=== PATIENT | male | born 1995 | race Caucasian/White ===

== ENCOUNTER 2017-03-17 02:46 | Emergency (ER) | payer SELFPAY ==
[~2017-03-17] VITALS: Ht 185.4 cm; Wt 65.8 kg
[2017-03-17] MEDS ORDERED: IBUP-1007 PO (03:37)
--- NOTE | 2017-03-17 03:38 | PHYS DOC ---
Past Medical History Past Medical History: Other Additional Past Medical Histor: PTSD, heart murmur, "heart attack at 16y/o", Past Surgical History: Other Additional Past Surgical Histo: dental Alcohol Use: None Drug Use: None Adult General Chief Complaint Chief Complaint: CHEST WALL PAIN HPI HPI Patient is a 21 year old gentleman who presents here today complaining of sharp midsternal chest pain that started earlier today. Patient reported some tingling and numbness to his right hand as well. Patient denies any weakness. Patient has any fevers shakes chills nausea vomiting diarrhea chest pain shortness of breath cough cold or runny nose. Patient denies any history of hypertension diabetes liver longer kidney problems. Patient reports he was told pleurisy back in 2010. Constitutional: Denies fever or chills [] Eyes: Denies change in visual acuity, redness, or eye pain [] HENT: Denies nasal congestion or sore throat [] All other review systems are negative except as documented in the history of present illness portion. Constitutional: Well developed, well nourished, no acute distress, non-toxic appearance. [] HENT: Normocephalic, atraumatic, bilateral external ears normal, oropharynx moist, no oral exudates, nose normal. [] Eyes: PERRLA, EOMI, conjunctiva normal, no discharge. [] Neck: Normal range of motion, no tenderness, supple, no stridor. [] Cardiovascular:Heart rate regular rhythm, Lungs & Thorax: Bilateral breath sounds clear to auscultation [] repeatable tenderness to palpation to his anterior chest wall. Abdomen: Bowel sounds normal, soft, no tenderness, no masses, no pulsatile masses. [] Skin: Warm, dry, no erythema, no rash. [] Back: No tenderness, no CVA tenderness. [] Extremities: No tenderness, no cyanosis, no clubbing, ROM intact, no edema. [] Neurologic: Alert and oriented X 3, normal motor function, normal sensory function, no focal deficits noted. [] Psychologic: Affect normal, judgement normal, mood normal. [] Assessment and plan 21-year-old gentleman who presents here today with nonspecific chest wall pain. Patient be discharged home in stable condition. Patient's EKG reveals normal sinus rhythm at a heart rate of [address]-T wave out of maladies and no evidence of ST elevation [place]. Interpreted by Dr. Murray. Patient's chest x-ray reveals a normal heart size no infiltrates or effusions. Interpreted by Dr. Murray. Patient stable discharged home with ibuprofen. Allergies Allergies Allergies Coded Allergies Type Severity Reaction Last Updated Verified No Known Drug Allergies 03/17/17 No Current Patient Data Vital Signs Vital Signs Date Time Temp Pulse Resp B/P (MAP) Pulse Ox O2 Delivery O2 Flow Rate FiO2 03/17/17 03:00 98.2 93 16 132/68 (89) 97 Room Air 98.2 EKG EKG [] Radiology/Procedures Radiology/Procedures [] Course & Med Decision Making Course & Med Decision Making Pertinent Labs and Imaging studies reviewed. (See chart for details) [] Dragon Disclaimer Dragon Disclaimer This electronic medical record was generated, in whole or in part, using a voice recognition dictation system. Departure Departure Impression: Primary Impression: Chest wall pain Disposition: 01 HOME, SELF-CARE Condition: IMPROVED Referrals: NO PCP (PCP) Patient Instructions: Chest Wall Pain Scripts Ibuprofen (IBUPROFEN) 600 Mg Tablet 600 MG PO PRN Q6HRS Y for PAIN, #20 TAB Prov: RHONDA MARRUFO MD 03/17/17 RHONDA MARRUFO MD Mar 17, 2017 03:38
[2017-03-17 03:53] VITALS: BP 113/60
[2017-03-17] MEDS ORDERED: IBUPROFEN 600 MG TABLET. PO ONE (04:00)
--- NOTE | 2017-03-17 06:51 | EKG ---
[facility] [address] [place] [address] Test Date: 2017-03-17 Test Time: 02:56:47 Pat Name: DAMIÁN MCCLURE Department: Room: Gender: M [employer]: : 1995 Requested By: RHONDA MARRUFO Order Number: [id number] Reading MD: Xander Jolly Measurements Intervals [place] Rate: 71 P: 55 TX: 194 QRS: 79 QRSD: 96 T: 64 QT: 360 QTc: 396 Interpretive Statements SINUS RHYTHM PAC Electronically Signed On 03-18-2017 8:54:32 CDT by Xander Jolly
--- NOTE | 2017-03-17 07:19 | RAD ---
Chest, 2 views, 03/17/2017: History: Chest pain The heart size and pulmonary vascularity are normal. No pulmonary infiltrates are seen. There is no evidence of pleural fluid. IMPRESSION: No acute cardiopulmonary abnormality is detected.
== END 2017-03-17 04:19 | disposition home or self-care (01) ==
LOC: ER 02:46
DX: R07.89 Other chest pain (principal); R20.0 Anesthesia of skin; F43.10 Post-traumatic stress disorder, unspecified; I25.2 Old myocardial infarction
CPT/HCPCS: 71020; 93005; 99284-25